=== PATIENT | female | born 1980 ===

== ENCOUNTER 2020-03-16 13:51 | Emergency (ER) | payer SELFPAY ==
[2020-03-16 14:00] VITALS: BP 113/72; PULSE 92; TEMP 99; BMI 33.3
--- NOTE | 2020-03-16 14:37 | PDOC ---
History of Present Illness - General Chief Complaint: Pain Stated Complaint: EXTREME LWR STOMACH/BACK PAIN (5 WKS PREG) Time Seen by Provider: 03/16/20 14:12 History Source: Patient - History of Present Illness Initial Comments: 03/16/20 14:34 39yo with PMH left ectopic was sent from [facility] for r/o ectopic. Patient reports LMP of 8/16, two days of spotting two days ago, and two weeks of constant cramping right sided pelvic pain. Denies vaginal bleeding, discharge, history of STI. Denies GI/ symptoms. Sexually active with male partner and uses condoms. Not on control. Irregular periods. PMH/PSH: as above Meds: none Allergies: penicillin, shellfish ROS GENERAL/CONSTITUTIONAL: No fever or chills. No weakness. HEAD, EYES, EARS, NOSE AND THROAT: No change in vision. No ear pain or discharge. No sore throat. CARDIOVASCULAR: No chest pain or shortness of breath RESPIRATORY: No cough, wheezing, or hemoptysis. GASTROINTESTINAL: No nausea, vomiting, diarrhea or constipation. GENITOURINARY: No dysuria, frequency, or change in urination. MUSCULOSKELETAL: No joint or muscle swelling or pain. No neck or back pain. SKIN: No rash NEUROLOGIC: No headache, vertigo, loss of consciousness, or change in strength/sensation. ENDOCRINE: No increased thirst. No abnormal weight change HEMATOLOGIC/LYMPHATIC: No anemia, easy bleeding, or history of blood clots. ALLERGIC/IMMUNOLOGIC: No hives or skin allergy. PE GENERAL: Awake, alert, and fully oriented, in no acute distress HEAD: No signs of trauma, normocephalic, atraumatic EYES: PERRLA, EOMI, sclera anicteric, conjunctiva clear ENT: Auricles normal inspection, hearing grossly normal, nares patent, oropharynx clear without exudates. Moist mucosa NECK: Normal ROM, supple, no lymphadenopathy, JVD, or masses LUNGS: No distress, speaks full sentences, clear to auscultation bilaterally HEART: Regular rate and rhythm, normal S1 and S2, no murmurs, rubs or gallops, peripheral pulses normal and equal bilaterally. ABDOMEN: Soft, RLQ and suprapubic tenderness without guarding or rebound. EXTREMITIES : Normal inspection, Normal range of motion, no edema. No clubbing or cyanosis. NEUROLOGICAL: Normal speech, normal gait, no focal sensorimotor deficits SKIN: Warm, Dry, normal turgor, no rashes or lesions noted PELVIC: no lesions, no blood or discharge, closed os, right adnexal tenderness Vital Signs Temp Pulse Resp BP Pulse Ox 99 F 92 H 18 113/72 98 03/16/20 13:55 03/16/20 13:55 03/16/20 13:55 03/16/20 13:55 03/16/20 13:55 39yo with PMH left ectopic was sent from [facility] for r/o ectopic. Patient reports LMP of 01/29, two days of spotting two days ago, and two weeks of constant cramping right sided pelvic pain. Vitals notable for slight tachycardia to 92, normotensive. Exam notable for RLQ and suprapubic tenderness without guarding or rebound, right adnexal tenderness. DDx includes IUP, ectop ic, adnexal cyst/mass, appendicitis, UTI. -CBC, CMP, coags, T&S, UA/UC -TVUS 03/16/20 21:39 -Labs unremarkable. Beta hcg 9538.1 -TVUS: A single intrauterine gestation is noted at approximately 6 weeks 0 days. No definite embryonic cardiac activity can be identified at this time. Correlate with close follow- up sonography. The right ovary appears unremarkable. No Doppler evidence of right ovarian torsion. The left ovary could not be definitely visualized - ? prior resection. Correlate with surgical history. No free fluid is identified. Unclear whether this is a viable IUP DC home with instructions to repeat beta-hcg in two days, TVUS in one week, and miscarriage precautions Past History - Medical History Allergies/Adverse Reactions: Allergies Allergy/AdvReac Type Severity Reaction Status Date / Time No Known Allergies Allergy Verified 03/16/20 13:55 Home Medications: Ambulatory Orders NK [No Known Home Medication] 03/16/20 COPD: No - Reproductive History Is Patient Now?: Yes - Psycho-Social/Smoking History Smoking History: Never smoked Have you smoked in the past 12 months: No - Substance Abuse Hx (Audit-C & DAST Scrn) How often the patient has a drink containing alcohol: Monthly or less Number of drinks the patient has on a typical day: 1 or 2 How often the patient has six or more drinks on one occasion: Never Score: In Men: 4 or > Positive; In Women: 3 or > Positive: 1 Screen Result (Pos requires Nsg. Audit-10AR): Negative In the last yr the pt used illegal drug/Rx for NonMed reason: No Score: Yes response is considered Positive: 0 Screen Result (Positive result requires Nsg. DAST-10): Negative *Physical Exam - Vital Signs Last Vital Signs Temp Pulse Resp BP Pulse Ox 99 F 92 H 18 113/72 98 03/16/20 13:55 03/16/20 13:55 03/16/20 13:55 03/16/20 13:55 03/16/20 13:55 ED Treatment Course - LABORATORY CBC & Chemistry Diagram: 03/16/20 14:50 03/16/20 14:50 - RADIOLOGY Radiology Studies Ordered: Category Date Time Status TRANSVAGINAL US PREG [US] Stat Ultrasound 03/16/20 14:32 Ordered Discharge - Discharge Information Problems reviewed: Yes Clinical Impression/Diagnosis: Pelvic pain affecting in first trimester, antepartum Condition: Stable Disposition: HOME - Follow up/Referral - Patient Discharge Instructions Additional Instructions: You were seen in the ER after being sent from [facility] to rule out an ectopic. We did a physical exam, labs, and an ultrasound, which showed a in your uterus and no ectopic . It is unclear at this point whether the is viable. Please follow up in two days for a repeat beta- hcg (pregancy level blood test) and in one week for a repeat ultrasound. You may experience a miscarriage. Please return to the ER for significant bleeding soaking through the pads, fever, or any concerning symptoms - Post Discharge Activity
[2020-03-16] MEDS ORDERED: ACETAMINOPHEN 1000 MG/100 ML VIAL (NON FORMULARY) IVPB ONE (15:00)
[2020-03-16] MEDS ORDERED: ACETAMINOPHEN INJECTION 100 ML IVPB ONE (15:15)
[2020-03-16 15:23] LABS: BASO % 0.4 % (0-2.0); EOS % 0.3 % (0-4.5); HEMATOCRIT 39.7 % (32.4-45.2); HEMOGLOBIN 13.7 GM/dL (10.7-15.3); LYMPH % 23.2 % (8-40); MCH 31.3 pg (25.7-33.7); MCHC 34.4 g/dl (32.0-36.0); MEAN CELL VOLUME 90.8 fl (80-96); MEAN PLT VOLUME 7.6 fl (7.5-11.1); MONO % 6.4 % (3.8-10.2); NEUT % 69.7 % (42.8-82.8); PLATELET COUNT 325 K/MM3 (134-434); RBC 4.37 M/mm3 (3.60-5.2); WHITE BLOOD COUNT 8.5 K/mm3 (4.0-10.0)
[2020-03-16 15:31] LABS: INR 1.02 (0.83-1.09)
[2020-03-16 15:34] LABS: ACTIVATED PTT 28.2 SECONDS (25.2-36.5)
--- NOTE | 2020-03-16 15:47 | PDOC ---
Documentation entered by Monica Song SCRIBE, acting as scribe for Jacky Estrella MD. Jacky Estrella MD: This documentation has been prepared by the [employer] boss Ana, SCRIBE, under my direction and personally reviewed by me in its entirety. I confirm that the documentation accurately reflects all work, treatment, procedures, and medical decision making performed by me. Attending Attestation - Resident Resident Name: [email or web address] - ED Attending Attestation I have performed the following: I have examined & evaluated the patient, The case was reviewed & discussed with the resident, I agree w/resident's findings & plan, Exceptions are as noted - HPI HPI: 03/16/20 14:41 Patient is a 39 year old female, @ 6 weeks by LMP, with a significant past medical history of left ectopic s/p salpingectomy who presents to the ED, from [facility], with vaginal spotting and lower abdominal cramps. Patient reports spotting x2 days and constant right sided cramping x2 weeks. LMP: 01/30/2020 Patient is currently sexually active with one male partner. Allergies: penicillin, shellfish - Physicial Exam PE: 03/16/20 14:41 See resident exam. - Medical Decision Making 03/16/20 15:48 39 F with vaginal spotting and cramps. R/o ectopic. - Labs, HCG - TVUS Pt signed out to Dr. Jordan at 4:30, pending labs and US and reevaluation Discharge - Discharge Information Problems reviewed: Yes Clinical Impression/Diagnosis: Pelvic pain affecting in first trimester, antepartum Condition: Stable Disposition: HOME - Follow up/Referral - Patient Discharge Instructions Additional Instructions: You were seen in the ER after being sent from [facility] to rule out an ectopic. We did a physical exam, labs, and an ultrasound, which showed a in your uterus and no ectopic . It is unclear at this point whether the is viable. Please follow up in two days for a repeat beta- hcg (pregancy level blood test) and in one week for a repeat ultrasound. You may experience a miscarriage. Please return to the ER for significant bleeding soaking through the pads, fever, or any concerning symptoms - Post Discharge Activity
[2020-03-16 15:59] LABS: ALBUMIN 3.7 g/dl (3.4-5.0); BILIRUBIN,TOTAL 0.2 mg/dL (0.2-1); BLOOD UREA NITROGEN 11.8 mg/dL (7-18); CALCIUM 8.8 mg/dL (8.5-10.1); CREATININE 0.7 mg/dL (0.55-1.3); TOT PROT 7.7 g/dl (6.4-8.2)
[2020-03-16 18:24] LABS: URINE APPEARANCE CLEAR; URINE BILIRUBIN NEGATIVE (NEGATIVE); URINE COLOR YELLOW; URINE GLUCOSE (UA) NEGATIVE (NEGATIVE); URINE KETONE NEGATIVE (NEGATIVE); URINE LEUK ESTERASE NEGATIVE (NEGATIVE); URINE NITRITE NEGATIVE (NEGATIVE); URINE PROTEIN NEGATIVE (NEGATIVE); URINE UROBILINOGEN 0.2 mg/dL (0.2-1.0)
== END 2020-03-16 19:29 | disposition home or self-care (01) ==
LOC: JER 13:51
PROC: 3E0333Z Introduction of Anti-inflammatory into Peripheral Vein, Percutaneous Approach (ICD-10-PCS; principal; 2020-03-16)
DX: O26.891 Other specified pregnancy related conditions, first trimester (principal)
CPT/HCPCS: 36415; 76817-TC; 80053; 81003; 84702; 85025; 85610; 85730; 86850; 86900; 86901; 87086; 99284-25; J0131